=== PATIENT | female | born 1960 | race Caucasian/White ===

== ENCOUNTER 2017-09-21 08:38 | Observation (INO) ==
[2017-09-21] MEDS ORDERED: Sod Chloride 0.9% Inj 1,000 ML IV.SIG ONE (09:14)
[2017-09-21 09:57] LABS: Baso % (Auto) 0.4 % (0.0-2.0); Eos # (Auto) 0.1 th/mm3 (0.0-0.4); Eos % (Auto) 1.2 % (0.0-4.0); Hematocrit 39.6 % (35.0-46.0); Hemoglobin 13.2 gm/dL (11.6-15.3); Lymph # (Auto) 1.4 th/mm3 (1.0-4.8); Lymph % (Auto) 24.3 % (9.0-44.0); Mean Corpuscular HGB Conc 33.4 % (32.0-36.0); Mean Corpuscular Hemoglobin 28.1 pg (27.0-34.0); Mean Corpuscular Volume 84.1 fL (80.0-100.0); Mono # (Auto) 0.4 th/mm3 (0.0-0.9); Mono % (Auto) 6.9 % (0.0-8.0); Neut % (Auto) 67.2 % (16.0-70.0); Platelet Count 253 th/mm3 (150-450); Red Blood Count 4.71 mil/mm3 (4.00-5.30); Red Cell Distribution Width 13.4 % (11.6-17.2)
--- NOTE | 2017-09-21 10:07 | CT ---
EXAM DATE: 09/21/2017 10:01 AM EDT AGE/SEX: 57 years / Female INDICATIONS: Dizziness, weakness and nausea. CLINICAL DATA: This is the patient's initial encounter. Patient reports that signs and symptoms have been present for 1 day and indicates a pain score of 0/10. MEDICAL/SURGICAL HISTORY: None. Hysterectomy. RADIATION DOSE: 34.56 CTDI (mGy) COMPARISON: No prior exams available for comparison. TECHNIQUE: CT of the head without contrast. Using automated exposure control and adjustment of the mA and/or kV according to patient size, radiation dose was kept as low as reasonably achievable to ob tain optimal diagnostic quality images. DICOM format image data is available electronically for revi ew and comparison. FINDINGS: Cerebrum: The ventricles are normal for age. No evidence of midline shift, mass lesion, hemorrhage or acute infarction. No extraaxial fluid collections are seen. Posterior Fossa: The cerebellum and brainstem are intact. The 4th ventricle is midline. The cerebe llopontine angle is unremarkable. Extracranial: The visualized portion of the orbits is intact. Skull: The calvaria is intact. No evidence of skull fracture. CONCLUSION: 1. Unremarkable CT scan of the brain. . Electronically signed by: Amish Rosario MD 09/21/2017 10:06 AM EDT
[2017-09-21 10:13] LABS: Anion Gap 10 meq/L (5-15); Blood Urea Nitrogen 11 mg/dL (7-18); Calcium 9.6 mg/dL (8.5-10.1); Chloride 105 meq/L (98-107); Glomerular Filtration Rate 80 mL/min (>89); Glucose,Random 109 mg/dL (74-106); Potassium 4.1 meq/L (3.5-5.1); Sodium 139 meq/L (136-145)
--- NOTE | 2017-09-21 11:42 | ED ---
HPI General Chief Complaint: Dizziness Stated Complaint: Weakness Time Seen by Provider: 09/21/17 09:01 Related Data Home Medications Medication Instructions Recorded Confirmed No Known Home Medications 09/21/17 09/21/17 Allergies Allergy/AdvReac Type Severity Reaction Status Date / Time Fish Containing Products Allergy Unknown RASH, Verified 09/21/17 08:57 TINGLING OF MOUTH ZOMEX Allergy Severe "STOPS MY Uncoded 09/21/17 08:58 BREATHING" [facility] Surgical History Surgical History S/P partial hysterectomy (Acute) Social History Social History Substance History: No History of Abuse Second Hand Smoke Exposure: No Smoking Status: Never smoker How Often Do You Have a Drink Containing Alcohol: Monthly or less Recent Travel in [facility] within the Last 8 Weeks: No Recent Out of Country Travel within the Last 8 Weeks: No Immunization History Tetanus Immunization: <5 Years Hx Influenza Vaccine This Season: Yes Course Initial Documented Vital Signs Temperature 97.6 F 09/21/17 08:51 Pulse Rate 51 L 09/21/17 08:51 Respiratory Rate 18 09/21/17 08:51 Blood Pressure 124/61 09/21/17 08:51 Pulse Oximetry 100 09/21/17 08:51 Last Documented Vital Signs Temperature 97.6 F 09/21/17 08:51 Pulse Rate 51 L 09/21/17 08:51 Respiratory Rate 18 09/21/17 08:51 Blood Pressure 124/61 09/21/17 08:51 Pulse Oximetry 100 09/21/17 08:51 Medical Decision Making [facility] Narrative Medical decision making narrative: 57-year-old female presents today with non- positional dizziness, nausea. Patient states that she woke up this way. She denies any previous history of vertigo or anything similar. Patient was noted to have a heart rate that dropped into the low 40s. It dropped as low as 44. Patient has normal baseline heart rate of 60. She states that she has a fit bit has her heart rate monitored with this. CT scan was negative for acute intracranial process. Electrolytes are within normal limits. She has been given Zofran and IV fluids. She states she feels better however still symptomatic. Case was discussed with Dr. Bergman, [facility], patient will be admitted and will likely need a cardiology consult for the bradycardia. Lab Data Result diagrams: 09/21/17 09:28 09/21/17 09:28 Lab Results 09/21/17 09/21/17 Range/Units 09:28 09:28 WBC 6.0 (4.0-11.0) th/mm3 RBC 4.71 (4.00-5.30) mil/mm3 Hgb 13.2 (11.6-15.3) gm/dL Hct 39.6 (35.0-46.0) % MCV 84.1 (80.0-100.0) fL MCH 28.1 (27.0-34.0) pg MCHC 33.4 (32.0-36.0) % RDW 13.4 (11.6-17.2) % Plt Count 253 (150-450) th/mm3 MPV 9.0 (7.0-11.0) fL Neut % (Auto) 67.2 (16.0-70.0) % Lymph % (Auto) 24.3 (9.0-44.0) % [place] % (Auto) 6.9 (0.0-8.0) % Eos % (Auto) 1.2 (0.0-4.0) % Baso % (Auto) 0.4 (0.0-2.0) % Neut # (Auto) 4.0 (1.8-7.7) th/mm3 Lymph # (Auto) 1.4 (1.0-4.8) th/mm3 [place] # (Auto) 0.4 (0.0-0.9) th/mm3 Eos # (Auto) 0.1 (0.0-0.4) th/mm3 Baso # (Auto) 0.0 (0.0-0.2) th/mm3 WBC Differential . Differential Comment Auto diff final Sodium 139 (136-145) meq/L Potassium 4.1 (3.5-5.1) meq/L Chloride 105 (98-107) meq/L Carbon Dioxide 24.0 (21.0-32.0) meq/L Anion Gap 10 (5-15) meq/L BUN 11 (7-18) mg/dL Creatinine 0.75 (0.50-1.00) mg/dL Estimated GFR 80 L (>89) mL/min Random Glucose 109 H (74-106) mg/dL Calcium 9.6 (8.5-10.1) mg/dL Troponin I Less than 0.02 L (0.02-0.05) ng/mL Imaging Data Radiologist's impression: Head CT 09/21/17 09:16 CONCLUSION: 1. Unremarkable CT scan of the brain. . Discharge Plan Discharge Disposition Patient Disposition: 30 Still Patient Discharge Details Diagnosis: Symptomatic bradycardia, Nausea, Dizziness Physicians Team ED Provider: Rolando Dillard Primary Care Provider: Nik Brewer Attending Provider: Alex Hernandez Discharge Interventions Interventions: Vital Signs Last Done: 09/21/17 08:51 Status ED Status: Admitted Observation Patient
[2017-09-21 11:50] LABS: Magnesium 2.4 mg/dL (1.5-2.5); Phosphorus 1.3 mg/dL (2.5-4.9)
--- NOTE | 2017-09-21 13:23 | P.HP ---
History of Present Illness Primary Care Physician: Nik Brewer MD History of Present Illness: 57-year-old black female being admitted for dizziness. Patient was in his usual state of health until sometime earlier this morning which began experiencing nausea and lightheadedness. She reports that she was spinning but when asked if she saw the room spinning she said no. Says that she lied down with the persistence of her symptoms to no avail and reportedly stated that she thought she was going to "pass out." She says that her family members inform her that she had droop or slurred speech, namely her son and daughter they were at the bedside, as well as her on the phone. But no one reported her having any facial droop, patient herself does not recall experiencing any facial droop. Denies any focal numbness or weakness. Reports feeling diffusely weak afterwards and had to lie down until the ambulance came. Denies having shortness of breath or chest pain or chest pressure. Denies having any change in her bowel movements. Denies vomiting. Did not take any medications at home. Patient states he drinks 5-6 cups of water a day. Says she is under a lot of stress right now since she is a home care and home health aides teacher and does not have any income coming in at this moment during the summer break. Lives with her and children. Upon arrival to the emergency department patient appears to have a pulse in the 50s with normal blood pressures. EKG which had been reviewed shows normal sinus rhythm. Initial blood work is unremarkable. Patient was given a normal saline bolus with improvement in her symptoms. Now has an appetite and wants to eat. Review of Systems All other systems reviewed negative except as stated in HPI PMFSH - History History Provided By: Patient - Medical History Medical History: Medical History (Last Updated 09/21/17 @ 13:17 by Alex Hernandez MD) Patient denies medical problems - Surgical History Surgical History: Surgical History (Last Updated 09/21/17 @ 08:51 by Glo Weldon) S/P partial hysterectomy - Family History Family History: Family History (Last Updated 09/21/17 @ 13:17 by Alex Hernandez MD) Other Heart attack - Tobacco History Second Hand Smoke Exposure: No Smoking Status: Never smoker - Alcohol History How Often Do You Have a Drink Containing Alcohol: Monthly or less - Substance Use History Substance History: No History of Abuse - Travel History Recent Travel in the [place] Within the Last 8 Weeks: No Recent Travel Out of the Country Within the Last 8 Weeks: No - Immunization History Tetanus Immunization: <5 Years Hx Influenza Vaccine This Season: Yes Medications and Allergies Active Medications: Active Medications Potassium Phosphate 15 mmol/ (Sodium Chloride) 155 mls @ 38.75 mls/hr IV.SIG ONCE ONE Stop: 09/21/17 17:06 Sodium Chloride (Ns Flush) 2 ml IV.FLUSH PRN PRN PRN Reason: FLUSH AFTER USING IV ACCESS Sodium Chloride (Ns Flush) 2 ml IV.FLUSH BID CHANTELL Sodium Chloride (Ns Flush) 2 ml IV.FLUSH PRN PRN PRN Reason: FLUSH AFTER USING IV ACCESS Allergies Allergy/AdvReac Type Severity Reaction Status Date / Time Fish Containing Products Allergy Unknown RASH, Verified 09/21/17 08:57 TINGLING OF MOUTH ZOMEX Allergy Severe "STOPS MY Uncoded 09/21/17 08:58 BREATHING" Home Medications Medication Instructions Recorded Confirmed Type No Known Home Medications 09/21/17 09/21/17 History Exam Vital signs: Vital Signs 09/21/17 08:51 09/21/17 12:24 Temperature 97.6 F Pulse Rate 51 L 54 L Respiratory Rate 18 14 Blood Pressure 124/61 117/64 Pulse Oximetry 100 99 Intake & Output 09/20/17 09/21/17 09/21/17 18:59 06:59 18:59 Weight 68.492 kg Narrative: VS: afebrile GENERAL: NAD, lying in bed, awake SKIN: Warm and dry. EYES: Pupils equal and round. No scleral icterus. No injection or drainage. EOMI intact. ENT: No nasal bleeding or discharge. Mucous membranes pink and moist. TM's intact BL. No nystagmus noted. CARDIOVASCULAR: Regular rate and rhythm. no murmurs RESPIRATORY: No accessory muscle use. Clear to auscultation. Breath sounds equal bilaterally. GASTROINTESTINAL: Abdomen soft, minimal left abd TTP, ND Extremities: No clubbing, cyanosis, or edema. No obvious deformities. MUSCULOSKELETAL: grossly intact ROM with 4/5 strength in upper and lower extremities proximally; adequate muscle bulk and tone for age and habitus NEUROLOGICAL: Awake and alert. No obvious cranial nerve deficits. No facial droop nor slurred speech noted. I am unable to elicit reflexes in the lower extremities bilaterally. Intact sensation to light finger touch bilaterally over lower extremities and face. No facial droop, no slurred speech, tongue and uvula protrusion in midline. PSYCHIATRIC: Appropriate mood and affect; insight and judgment normal. Results - Labs CBC & Chem 7: 09/21/17 09:28 08 09:28 Labs: Laboratory Results - last 24 hr 09/21/1718 09/21/17 09:28 09:28 09:28 WBC 6.0 RBC 4.71 Hgb 13.2 Hct 39.6 MCV 84.1 MCH 28.1 MCHC 33.4 RDW 13.4 Plt Count 253 MPV 9.0 Neut % (Auto) 67.2 Lymph % (Auto) 24.3 [place] % (Auto) 6.9 Eos % (Auto) 1.2 Baso % (Auto) 0.4 Neut # (Auto) 4.0 Lymph # (Auto) 1.4 [place] # (Auto) 0.4 Eos # (Auto) 0.1 Baso # (Auto) 0.0 WBC Differential . Differential Comment Auto diff final Sodium 139 Potassium 4.1 Chloride 105 Carbon Dioxide 24.0 Anion Gap 10 BUN 11 Creatinine 0.75 Estimated GFR 80 L Random Glucose 109 H Calcium 9.6 Phosphorus 1.3 L Magnesium 2.4 Troponin I Less than 0.02 L TSH 09/21/17 09:28 WBC RBC Hgb Hct MCV MCH MCHC RDW Plt Count MPV Neut % (Auto) Lymph % (Auto) [place] % (Auto) Eos % (Auto) Baso % (Auto) Neut # (Auto) Lymph # (Auto) [place] # (Auto) Eos # (Auto) Baso # (Auto) WBC Differential Differential Comment Sodium Potassium Chloride Carbon Dioxide Anion Gap BUN Creatinine Estimated GFR Random Glucose Calcium Phosphorus Magnesium Troponin I TSH 1.550 - Imaging Impressions Head CT 09/21/17 09:16 CONCLUSION: 1. Unremarkable CT scan of the brain. . Caprini VTE Risk Assessment Caprini VTE Risk Assessment: No/Low Risk (score <= 1) Caprini Risk Assessment Model: Point Value = 1 Point Value = 2 Point Value = 3 Point Value = 5 Age 41-60 Minor surgery BMI > 25 kg/m2 Swollen legs Varicose veins or History of unexplained or recurrent spontaneous Oral contraceptives or hormone replacement Sepsis (< 1 month) Serious lung disease, including pneumonia (< 1 month) Abnormal pulmonary function Acute myocardial infarction Congestive heart failure (< 1 month) History of inflammatory bowel disease Medical patient at bed rest Age 61-74 Arthroscopic surgery Major open surgery (> 45 min) Laparoscopic surgery (> 45 min) Malignancy Confined to bed (> 72 hours) Immobilizing plaster cast Central venous access Age >= 75 History of VTE Family history of VTE Factor V Leiden Prothrombin [id number] Lupus anticoagulant Anticardiolipin antibodies Elevated serum homocysteine Heparin-induced thrombocytopenia Other congenital or acquired thrombophilia Stroke (< 1 month) Elective arthroplasty Hip, pelvis, or leg fracture Acute spinal cord injury (< 1 month) Prophylaxis Regimen: Total Risk Factor Score Risk Level Prophylaxis Regimen 0-1 Low Early ambulation 2 Moderate Order ONE of the following: *Sequential Compression Device (SCD) *Heparin 5000 units SQ BID 3-4 Higher Order ONE of the following medications: *Heparin 5000 units SQ TID *Enoxaparin/Lovenox 40 mg SQ daily (WT < 150 kg, CrCl > 30 mL/min) *Enoxaparin/Lovenox 30 mg SQ daily (WT < 150 kg, CrCl > 10-29 mL/min) *Enoxaparin/Lovenox 30 mg SQ BID (WT < 150 kg, CrCl > 30 mL/min) AND/OR *Sequential Compression Device (SCD) 5 or more Highest Order ONE of the following medications: *Heparin 5000 units SQ TID (Preferred with Epidurals) *Enoxaparin/Lovenox 40 mg SQ daily (WT < 150 kg, CrCl > 30 mL/min) *Enoxaparin/Lovenox 30 mg SQ daily (WT < 150 kg, CrCl > 10-29 mL/min) *Enoxaparin/Lovenox 30 mg SQ BID (WT < 150 kg, CrCl > 30 mL/min) AND *Sequential Compression Device (SCD) Assessment and Plan - Plan 57-year-old white female being admitted for dizziness Dizziness/nausea/presyncope -Constellation of symptoms could possibly suggest some sort of arrhythmia or presyncope at home. While her pulse is currently here in the 50s her blood pressure was normal but this could possibly worsen at home. ER physician indicates that her pulse went to the 40s at one point in her room. EKG is unremarkable. -keep on telemetry -PT to evaluate the patient -TSH within normal limits. Mg and BMP wnl. Phosphorus on the other hand appears to be low, will replace and repeat in the morning. -We will obtain orthostatic vital signs. -V/S checked q4 hrs, if pulse decreases to the 40s, to recheck BP and THEN consult cardiology if truly hypotensive. -Given the one symptom of slurred speech with no definitive endorsement of facial droop, I will proceed only with a head MRI to rule out a stroke. Otherwise hx and exam are not highly suggestive of CVA. -ASA -Given that her cardiac exam is within normal limits, I will not proceed with an echocardiogram as it will be of low yield at this time. -Pt under psychological stress, can be diagnosis of exclusion at end of stay if no organic workup found. Nausea - obtain LFTs, see above otherwise - diet as tolerated SCDs Addendum: Informed her that the MRI looks good with no acute findings noted. Nursing for me that the patient was able to ambulate without any further dizziness or nausea. Was tolerating p.o. intake. Patient's orthostatic vital signs were within normal limits. monitor. Patient now notifies me that she does have periodic ankle swelling from time to time and is asking if I can order an echocardiogram. I informed her that this is reasonable but that the technicians will not be returning until tomorrow morning during business hours. At that point the patient opted to proceed with getting an echocardiogram ordered by her PCP as an outpatient. Patient is also wanting to leave, worried about financial issues. Patient was offered the option of either staying in- house for another 18 hours to monitor her heart rhythm on a telemetry strip and possibly getting an echocardiogram in the morning. I informed the patient that she needs to follow-up with PCP to recheck her phosphorus level as we have supplemented her here intravenously. Patient has met maximal benefit from hospitalization and is clinically stable for discharge with a Holter.
[2017-09-21] MEDS ORDERED: Aspirin 325 MG Tablet PO ONE (13:27)
--- NOTE | 2017-09-21 13:31 | ECG ---
Date Performed: 09/21/2017 Time Performed: 09:00:13 PTAGE: 57 years EKG: SINUS BRADYCARDIA BORDERLINE ECG NO PREVIOUS TRACING DOCTOR: Manpreet Aguayo Interpretating Date/Time 09/21/2017 13:29:49
[2017-09-21 15:20] LABS: Total Protein 7.6 g/dL (6.4-8.2)
[2017-09-21] MEDS ORDERED: Potassium Phosphate Inj 15 MMOL in Sodium Chlor 0.9% Inj 150 ML IV.SIG ONE (16:00)
--- NOTE | 2017-09-21 16:21 | MR ---
EXAM DATE: 09/21/2017 4:05 PM EDT AGE/SEX: 57 years / Female INDICATIONS: Dizziness. CLINICAL DATA: This is the patient's initial encounter. Patient reports that signs and symptoms have been present for 1 day and indicates a pain score of 5/10. MEDICAL/SURGICAL HISTORY: None. Hysterectomy. Hand sx. [place] [facility] [place]/2017. . TECHNIQUE: Multiplanar, multisequence examination of the brain was performed without contrast. FINDINGS: Cerebrum: The ventricles are normal for age. No evidence of midline shift, mass lesion, hemorrhage or acute infarction. No extraaxial fluid collections are seen. The pituitary gland and suprasellar cistern are normal in configuration. White Matter: No significant signal abnormalities are seen in the white matter. Posterior Fossa: The cerebellum and brainstem are intact. The 4th ventricle is midline. The cerebel lopontine angle is unremarkable. The cerebellar tonsils are normal in position. Diffusion Imaging: No focal areas of restricted diffusion are seen. No evidence of acute infarction . Extracranial: The visualized portions of the orbits and paranasal sinuses are unremarkable. CONCLUSION: 1. No acute intracranial abnormality identified. Electronically signed by: Bhargav Arnold MD 09/21/2017 4:20 PM EDT
--- NOTE | 2017-09-26 08:35 | HM ---
Date Performed: 09/21/2017 Time Performed: 21:06:00 HOOKUP DATE: 09/21/17 09:06:00 PM Aminata ANALYSIS START TIME: 09/21/2017 9:11:00 PM ANALYSIS END TIME: 09/22/2017 8:41:49 PM PATIENT AGE: 57 PATIENT HEIGHT PATIENT WEIGHT DRUG LIST PATIENT DIAGNOSIS: symptomatic bradycardia TEST NARRATIVE: The patient's average heart rate was 65 BPM. No episodes of tachycardia wer e noted. Heart rates less than 50 BPM were noted 20% of the time. No pauses exceeding 2.0 second s were noted. 1 ventricular ectopics, which represented < 1% of the total beat count, were noted. The highest ventricular ectopic frequency occurred from 11:00 PM to 12:00 AM Fri. During this time 1 VE(s) occurred. Ventricular ectopics were observed as 1 isolated beat(s) only. No couplets or ru ns were noted. 28 supraventricular ectopics, which represented < 1% of the total beat count, were noted. The highest supraventricular ectopic frequency occurred from 12:00 AM to 01:00 AM Fri. Jsoephi ng this time 6 SVE(s) occurred. No episodes of ST depression (defined as -1.0 mm or more) were no uziel in channel 1. No episodes of ST depression (defined as -1.0 mm or more) were noted in channel 2. No episodes of ST depression (defined as -1.0 mm or more) were noted in channel 3. TEST INTERPRETATION: Sinus rhythm PACs No pause No ventricular tachycardia No supraventricular tachycardia observed There was no entry in the diary Signed by : Fernando farfan
== END 2017-09-21 22:09 | disposition home or self-care (01) ==
LOC: NEPC 08:38 → NEPFCDU 08:38 → NEDA 08:38 → NEPFCDU 12:33
PROVIDERS: ADMIT Hospitalist; ATTEND Hospitalist
DX: R00.1 Bradycardia, unspecified; Z90.710 Acquired absence of both cervix and uterus; R29.810 Facial weakness; R42 Dizziness and giddiness; Z82.49 Family history of ischemic heart disease and other diseases of the circulatory system; R94.31 Abnormal electrocardiogram [ECG] [EKG]